=== PATIENT | male | born 1955 | race Caucasian/White ===

== ENCOUNTER 2024-02-07 19:04 | Emergency (ER) | payer MEDICARE ==
[2024-02-07 20:25] LABS: Troponin I Less than 0.010 ng/mL (< 0.028)
[2024-02-07] MEDS ORDERED: HYDROcodone/Acetaminophen 5/325 mg Tablet ONE (21:28)
== END 2024-02-07 23:07 | disposition home or self-care (01) ==
LOC: ERS 19:04
DX: S46.122A Laceration of muscle, fascia and tendon of long head of biceps, left arm, initial encounter (principal); I10 Essential (primary) hypertension; X50.0XXA Overexertion from strenuous movement or load, initial encounter; M79.602 Pain in left arm; R60.0 Localized edema
CPT/HCPCS: 36415